=== PATIENT | female | born 1985 | race Hispanic/Latino ===

== ENCOUNTER → 2022-04-10 | Outpatient (CLI) | payer SELFPAY | LOC: M LAB 11:42 | DX: Z00.00 Encounter for general adult medical examination without abnormal findings (principal) ==

== ENCOUNTER → 2022-07-18 | Outpatient (CLI) | payer OTHER | LOC: M RAD 09:11 | DX: Z34.91 Encounter for supervision of normal pregnancy, unspecified, first trimester (principal); Z3A.01 Less than 8 weeks gestation of pregnancy ==

== ENCOUNTER → 2022-08-12 | Outpatient (CLI) | payer OTHER ==
[2022-08-12 15:03] LABS: HEMATOCRIT 37.1 % (36.0-47.0); HEMOGLOBIN 12.3 g/dl (12.0-15.5); MEAN CORPUSCULAR HEMOGLOBIN 32.4 pg (27.0-33.0); MEAN CORPUSCULAR HGB CONC 33.2 g/dl (32.0-36.5); MEAN CORPUSCULAR VOLUME 97.6 fl (80.0-96.0); PLATELET COUNT, AUTOMATED 254 10^3/uL (150-450); WHITE BLOOD COUNT 6.6 10^3/uL (4.0-10.0)
[2022-08-12 20:50] LABS: HIV 1&2 SCREEN CENTAUR NEGATIVE (NEGATIVE)
== END ==
LOC: M PLALAB 10:06
PROVIDERS: ATTEND Obstetrics & Gynecology
DX: O09.529 Supervision of elderly multigravida, unspecified trimester (principal)

== ENCOUNTER → 2022-09-02 | Outpatient (CLI) | payer OTHER | LOC: M PLALAB 14:42 | PROVIDERS: ATTEND Obstetrics & Gynecology | DX: O09.521 Supervision of elderly multigravida, first trimester (principal); Z3A.00 Weeks of gestation of pregnancy not specified ==

== ENCOUNTER → 2022-09-10 | Outpatient (REF) | payer OTHER ==
[2022-09-10 16:14] LABS: GC DNA AMPLIFICATION NEGATIVE (NEGATIVE)
== END ==
LOC: M SFHCWAGY 12:47
PROVIDERS: ATTEND Obstetrics & Gynecology
DX: O09.529 Supervision of elderly multigravida, unspecified trimester (principal)

== ENCOUNTER → 2022-10-15 | Outpatient (REF) | payer OTHER | LOC: M SFHCWAGY 15:12 | PROVIDERS: ATTEND Obstetrics & Gynecology | DX: O09.529 Supervision of elderly multigravida, unspecified trimester (principal) ==

== ENCOUNTER → 2022-10-25 | Outpatient (CLI) | payer OTHER | LOC: M WHC 13:59 | PROVIDERS: ATTEND Obstetrics & Gynecology | DX: O09.521 Supervision of elderly multigravida, first trimester (principal) ==

== ENCOUNTER → 2022-12-19 | Outpatient (CLI) | payer OTHER ==
[2022-12-19 13:59] LABS: HEMATOCRIT 31.3 % (36.0-47.0); HEMOGLOBIN 10.2 g/dl (12.0-15.5); MEAN CORPUSCULAR HEMOGLOBIN 31.6 pg (27.0-33.0); MEAN CORPUSCULAR HGB CONC 32.6 g/dl (32.0-36.5); MEAN CORPUSCULAR VOLUME 96.9 fl (80.0-96.0); PLATELET COUNT, AUTOMATED 211 10^3/uL (150-450); RED BLOOD COUNT 3.23 10^6/uL (4.00-5.40)
[2022-12-19 14:57] LABS: GC DNA AMPLIFICATION NEGATIVE (NEGATIVE)
== END ==
LOC: M PLALAB 09:28
PROVIDERS: ATTEND Obstetrics & Gynecology
DX: Z34.92 Encounter for supervision of normal pregnancy, unspecified, second trimester (principal)

== ENCOUNTER → 2022-12-26 | Outpatient (CLI) | payer OTHER | LOC: M WHC 14:58 | PROVIDERS: ATTEND Obstetrics & Gynecology | DX: Z36.2 Encounter for other antenatal screening follow-up (principal) ==

== ENCOUNTER → 2023-02-04 | Outpatient (REF) | payer OTHER | LOC: M PLALAB 14:23 | PROVIDERS: ATTEND Obstetrics & Gynecology | DX: Z36.9 Encounter for antenatal screening, unspecified (principal); Z3A.36 36 weeks gestation of pregnancy ==

== ENCOUNTER → 2023-02-20 | Outpatient (CLI) | payer OTHER ==
[2023-02-20 13:28] LABS: ALBUMIN 2.5 G/DL (3.2-5.2); ALKALINE PHOSPHATASE 125 U/L (46-116); ALT/SGPT 12 U/L (7.0-40); AST/SGOT 13 U/L (<34); BILIRUBIN,DIRECT < 0.1 MG/DL (<0.4); BILIRUBIN,TOTAL 0.3 MG/DL (0.3-1.2); TOTAL PROTEIN 5.8 G/DL (5.7-8.2)
== END ==
LOC: M PLALAB 09:53
PROVIDERS: ATTEND Obstetrics & Gynecology
DX: O34.219 Maternal care for unspecified type scar from previous cesarean delivery (principal)

== ENCOUNTER 2023-03-10 11:35 | Inpatient (IN) | payer OTHER ==
[~2023-03-10] VITALS: Ht 154.9 cm; Wt 80.2 kg
[2023-03-10] VITALS (17 sets, daily range): BP systolic 109–133; BP diastolic 50–74; TEMP 98
[2023-03-10] MEDS ORDERED: PRENTAB9 PO (11:53)
[2023-03-10] MEDS ORDERED: TUMS750C5 PO (11:53)
[2023-03-10] MEDS ORDERED: HOME MED LIST COMPLETE! XX SCH (11:55)
[2023-03-10] MEDS ORDERED: LACTATED RINGER'S 1000 ML IV STA (12:21)
[2023-03-10] MEDS ORDERED: PENICILLIN G POTASSIUM 5 MU IV 5 MU in D5W MINI-BAG PLUS 100 ML IV STA (12:21)
[2023-03-10] MEDS ORDERED: TRANEXAMIC ACID INJection 1,000 MG in NS 100 ML IV PRN (12:25)
[2023-03-10] MEDS ORDERED: LIDOCAINE 1% MDV 20ML VIAL INFIL PRN (12:25)
[2023-03-10] MEDS ORDERED: OXYTOCIN INJ 10UNITS/ML 1ML VIAL IM PRN (12:25)
[2023-03-10] MEDS ORDERED: METHYLERGONOVINE MALEATE 0.2MG/ML 1ML VIAL IM PRN (12:25)
[2023-03-10] MEDS ORDERED: CARBOPROST TROMETHAMINE 250 MCG/ML AMP IM PRN (12:25)
[2023-03-10] MEDS ORDERED: OXYTOCIN DRIP 30 UNITS in IV 1 EA IV PRN (12:25)
[2023-03-10 13:13] LABS: HEMATOCRIT 27.7 % (36.0-47.0); HEMOGLOBIN 8.9 g/dl (12.0-15.5); MEAN CORPUSCULAR HEMOGLOBIN 28.7 pg (27.0-33.0); MEAN CORPUSCULAR HGB CONC 32.1 g/dl (32.0-36.5); MEAN CORPUSCULAR VOLUME 89.4 fl (80.0-96.0); PLATELET COUNT, AUTOMATED 197 10^3/uL (150-450); WHITE BLOOD COUNT 6.5 10^3/uL (4.0-10.0)
[2023-03-10] MEDS ORDERED: OXYTOCIN DRIP 30 UNITS in IV 1 EA IV SCH (16:00)
[2023-03-10] MEDS ORDERED: LR 1,000 ML IV SCH (16:00)
[2023-03-10] MEDS: PEN G POT 3,000,000 UNIT/50 ML 3,000,000 UNIT in IV 1 EA IV SCH ×2 (17:21→20:57)
[2023-03-10] MEDS ORDERED: PROMETHAZINE 25MG/ML 1ML VIAL IV ONE (21:50)
[2023-03-10] MEDS ORDERED: MORPHINE 10 MG/ML 1ML VIAL SC ONE (21:50)
[2023-03-10] MEDS ORDERED: MORPHINE 4 MG/ML 1ML VIAL IV ONE (21:50)
[2023-03-11] VITALS (10 sets, daily range): BP systolic 90–138; BP diastolic 50–68; O2SAT 96–97
[2023-03-11] MEDS ORDERED: PANTOPRAZOLE 40MG VIAL IV ONE (01:00)
[2023-03-11] MEDS ORDERED: LIDOCAINE 1% MDV 20ML VIAL As Ordered ONE (02:47)
[2023-03-11] MEDS ORDERED: LIDOCAINE 1% MDV 20ML VIAL SC ONE (03:00)
[2023-03-11] MEDS ORDERED: MORPHINE 4 MG/ML 1ML VIAL IV ONE (03:00)
[2023-03-11] MEDS ORDERED: ONDANSETRON 4MG 2ML VIAL IV PRN (03:40)
[2023-03-11] MEDS ORDERED: IBUPROFEN 600MG TAB PO PRN (03:40)
[2023-03-11] MEDS ORDERED: DIBUCAINE 1% OINTMENT 30GM TOP PRN (03:40)
[2023-03-11] MEDS ORDERED: ANUSOL HC CREAM 30GM TOP PRN (03:40)
[2023-03-11] MEDS ORDERED: RHOGAM 300MCG (1500IU) INJ IM SCH (03:40)
[2023-03-11] MEDS ORDERED: ACETAMINOPHEN TAB 650MG DOSE (2X325MG) PO PRN (03:40)
[2023-03-11] MEDS ORDERED: DOCUSATE SODIUM 100MG CAPSULE PO PRN (03:40)
[2023-03-11] MEDS ORDERED: MOM 30ML SUSPENSION UDC PO PRN (03:40)
[2023-03-11] MEDS ORDERED: ceFAZolin SOD 2 GM in IV 1 EA IV ONE (04:00)
[2023-03-11] MEDS: IBUPROFEN 800 MG TAB PO PRN ×2 (04:55→14:41)
[2023-03-11] MEDS: PRENATAL VITAMINS CHEWABLE TABLET PO SCH (09:46)
[2023-03-11] MEDS: ACETAMINOPHEN 500 MG TAB PO PRN ×2 (09:46→19:47)
[2023-03-11] MEDS: SIMETHICONE 80MG CHEW TAB PO PRN (20:06)
[2023-03-12 06:00] VITALS: BP 116/57; O2SAT 100
[2023-03-12] MEDS: PRENATAL VITAMINS CHEWABLE TABLET PO SCH (08:22)
[2023-03-12] MEDS: SIMETHICONE 80MG CHEW TAB PO PRN (08:31)
[2023-03-12] MEDS: IBUPROFEN 800 MG TAB PO PRN (12:02)
[2023-03-13] MEDS ORDERED: MEASLES,MUMPS,RUBELLA VACCINE INJ (MMR-II) SC.IMMUN ONE (09:00)
== END 2023-03-12 13:20 | disposition home or self-care (01) | DRG 560 ==
LOC: M LDO 11:35 → M LDI 12:15 → M OBS 03-11 05:25
PROVIDERS: ADMIT Advanced Practice Midwife; ATTEND Advanced Practice Midwife
PROC: 10E0XZZ Delivery of Products of Conception, External Approach (ICD-10-PCS; principal; 2023-03-10)
PROC: 10907ZC Drainage of Amniotic Fluid, Therapeutic from Products of Conception, Via Natural or Artificial Opening (ICD-10-PCS; 2023-03-10)
PROC: 0KQM0ZZ Repair Perineum Muscle, Open Approach (ICD-10-PCS; 2023-03-10)
DX: O34.211 Maternal care for low transverse scar from previous cesarean delivery (principal); Z3A.40 40 weeks gestation of pregnancy; O48.0 Post-term pregnancy; O69.81X0 Labor and delivery complicated by cord around neck, without compression, not applicable or unspecified; O70.1 Second degree perineal laceration during delivery; Z37.0 Single live birth; O66.0 Obstructed labor due to shoulder dystocia

== ENCOUNTER → 2023-09-12 | Outpatient (REF) | payer OTHER ==
[~2023-09-12] MED LIST: PRENTAB9 PO; TUMS750C5 PO
== END ==
LOC: M PLALAB 13:17
PROVIDERS: ATTEND Advanced Practice Midwife
DX: Z12.4 Encounter for screening for malignant neoplasm of cervix (principal); Z11.51 Encounter for screening for human papillomavirus (HPV); Z53.9 Procedure and treatment not carried out, unspecified reason

== ENCOUNTER → 2024-05-10 | Outpatient (CLI) | payer OTHER | LOC: M RAD 12:15 | PROVIDERS: ATTEND Midwife | DX: Z34.81 Encounter for supervision of other normal pregnancy, first trimester (principal) ==

== ENCOUNTER → 2024-08-04 | Outpatient (CLI) | payer OTHER | LOC: M WHC 13:08 | PROVIDERS: ATTEND Student in an Organized Health Care Education/Training Program | DX: Z98.82 Breast implant status (principal); Z12.39 Encounter for other screening for malignant neoplasm of breast ==

== ENCOUNTER 2024-12-11 10:18 | Inpatient (IN) | payer OTHER ==
[2024-12-11] VITALS (12 sets, daily range): BP systolic 117–142; BP diastolic 57–76
[~2024-12-11] VITALS: Ht 157.5 cm; Wt 86.0 kg
[2024-12-11] MEDS ORDERED: TUMS750C5 PO (10:58)
[2024-12-11] MEDS ORDERED: CYCL5TAB4 PO (11:01)
[2024-12-11] MEDS ORDERED: ASPI81CH33 PO (11:01)
[2024-12-11] MEDS ORDERED: UNIS25TA3 PO (11:01)
[2024-12-11] MEDS ORDERED: NOXI1TAB PO (11:02)
[2024-12-11 12:22] LABS: PLATELET COUNT, AUTOMATED 167 10^3/uL (150-450)
[2024-12-11] MEDS: LR 1,000 ML IV SCH (13:01)
[2024-12-11] MEDS: AMPICILLIN SOD 2 GM in DEXTROSE 5% (D5W) MINI-BAG PLU 100 ML IV STA (13:01)
[2024-12-11 13:27] LABS: HEPATITIS C VIRUS ABY INDEX < 0.02 INDEX (<0.8)
[2024-12-11] MEDS: LACTATED RINGER'S 1000 ML IV STA (14:06)
[2024-12-11] MEDS ORDERED: HOME MED LIST COMPLETE! XX SCH (14:25)
[2024-12-11 14:39] LABS: HIV 1&2 SCREEN NEGATIVE (NEGATIVE)
[2024-12-11] MEDS: AMPICILLIN SOD 1 GM in DEXTROSE 5% (D5W) ADV/MINI-BAG 50 ML IV SCH (17:07)
[2024-12-11] MEDS: OXYTOCIN DRIP 30 UNITS in IV 1 EA IV SCH (22:04)
[2024-12-12] VITALS (31 sets, daily range): BP systolic 103–143; BP diastolic 51–72; O2SAT 99
[2024-12-12] MEDS ORDERED: diphenhydrAMINE 50 MG/ML VIAL IV PRN (02:30)
[2024-12-12] MEDS ORDERED: ONDANSETRON 4MG 2ML VIAL IV PRN (02:30)
[2024-12-12] MEDS ORDERED: EPIDURAL/PCA KEYS XX PRN (02:30)
[2024-12-12] MEDS ORDERED: NALOXONE INJ 0.4 MG/1 ML VIAL IV PRN (02:30)
[2024-12-12] MEDS ORDERED: LR 500 ML IV PRN (02:30)
[2024-12-12] MEDS ORDERED: FENTANYL 2 MCG/ML ROPIVACAINE 0.2% IN 0.9% NACL 100 ML IVBAG As Ordered ONE (02:31)
[2024-12-12] MEDS: FENTANYL/ROPIVACAINE/NACL BAG 100 ML EPIDURAL SCH (02:57)
[2024-12-12] MEDS: OXYTOCIN DRIP 30 UNITS in IV 1 EA IV PRN (06:43)
[2024-12-12] MEDS ORDERED: IBUPROFEN 800 MG TAB PO PRN (07:00)
[2024-12-12] MEDS ORDERED: RHOGAM 300MCG (1500IU) INJ IM SCH (07:00)
[2024-12-12] MEDS ORDERED: IBUPROFEN 600 MG TAB PO PRN (07:00)
[2024-12-12] MEDS ORDERED: METHYLERGONOVINE MALEATE 0.2 MG TAB PO PRN (07:00)
[2024-12-12] MEDS ORDERED: ACETAMINOPHEN 325 MG TAB PO PRN (07:00)
[2024-12-12 07:17] LABS: CORD GAS ABE V -3.1; CORD GAS HCO3 V 22.3 MMOL/L; CORD GAS O2 SAT V 77.9 %; CORD GAS PCO2 V 41.5 mmHg; CORD GAS PH V 7.349 UNITS; CORD GAS PO2 V 34.3 mmHg; CORD GAS SBC V 21.4 MMOL/L; CORD GAS TCO2 V 23.6 MMOL/L
[2024-12-12 07:19] LABS: CORD GAS ABE A -5.4; CORD GAS HCO3 A 22.4 MMOL/L; CORD GAS O2 SAT A 15.9 %; CORD GAS PCO2 A 52.0 mmHg; CORD GAS PH A 7.252 UNITS; CORD GAS PO2 A 11.7 mmHg; CORD GAS SBC A 18.1 MMOL/L; CORD GAS TCO2 A 24.0 MMOL/L
[2024-12-12] MEDS: OXYTOCIN DRIP 30 UNITS in IV 1 EA IV SCH (07:52)
[2024-12-12] MEDS: PRENATAL VITAMINS CHEWABLE TABLET PO SCH (09:15)
[2024-12-12] MEDS: DIBUCAINE 1% OINTMENT 30 GM TOP PRN (09:16)
[2024-12-12] MEDS: DOCUSATE SODIUM 100 MG CAPSULE PO PRN (22:50)
[2024-12-13 06:00] VITALS: BP 110/62; O2SAT 98
[2024-12-13] MEDS: ACETAMINOPHEN 500 MG TAB PO PRN (08:08)
[2024-12-13] MEDS ORDERED: COLA100C5 PO (08:49)
[2024-12-13] MEDS ORDERED: IBUP-1022 PO (08:49)
[2024-12-14] MEDS ORDERED: MEASLES,MUMPS,RUBELLA VACCINE INJ (MMR-II) SC.IMMUN ONE (09:00)
== END 2024-12-13 14:25 | disposition home or self-care (01) | DRG 807 ==
LOC: M LDI 10:18 → INTOOBSV 10:18 → M OBS 12-12 08:26 → OBSVTOIN 12-12 09:12
PROVIDERS: ADMIT Obstetrics & Gynecology; ATTEND Obstetrics & Gynecology
PROC: 10E0XZZ Delivery of Products of Conception, External Approach (ICD-10-PCS; principal; 2024-12-12)
PROC: 0KQM0ZZ Repair Perineum Muscle, Open Approach (ICD-10-PCS; 2024-12-12)
DX: O34.211 Maternal care for low transverse scar from previous cesarean delivery (principal); Z37.0 Single live birth; Z3A.38 38 weeks gestation of pregnancy; O99.824 Streptococcus B carrier state complicating childbirth; Z79.82 Long term (current) use of aspirin; Z79.899 Other long term (current) drug therapy; O69.81X0 Labor and delivery complicated by cord around neck, without compression, not applicable or unspecified; O70.1 Second degree perineal laceration during delivery